=== PATIENT | female | born 1995 | race Hispanic/Latino ===

== ENCOUNTER 2021-10-14 09:21 | Outpatient (CLI) | payer OTHER | END 2021-10-14 09:22 | disposition home or self-care (01) | LOC: CSHULT 09:21 | PROVIDERS: ATTEND Family Medicine | DX: Z34.82 Encounter for supervision of other normal pregnancy, second trimester (principal); Z3A.21 21 weeks gestation of pregnancy | CPT/HCPCS: 76805 ==

== ENCOUNTER 2022-02-10 05:09 | Inpatient (IN) | payer MEDICAID, OTHER, SELFPAY ==
[2022-02-10 05:35] VITALS: BMI 26.1
[2022-02-10] MEDS ORDERED: Promethazine HCl 25 MG/ML VIAL IM PRN ×2 (08:14→09:39)
[2022-02-10] MEDS ORDERED: Lidocaine 1% (PF) 30 ML VIAL SC PRN (08:14)
[2022-02-10] MEDS ORDERED: Ibuprofen 800 MG TAB PO PRN (08:14)
[2022-02-10] MEDS ORDERED: Butorphanol Tartrate 1 MG/ML VIAL SLOW IVP PRN (08:14)
[2022-02-10] MEDS ORDERED: HYDROcodone/Acetaminophen 5/325 mg Tablet PO PRN ×3 (08:14→09:39)
[2022-02-10] MEDS ORDERED: hydrALAZINE 20 MG/ML VIAL SLOW IVP PRN ×2 (08:14→09:39)
[2022-02-10] MEDS ORDERED: Ondansetron PF 4 MG/2 ML Vial IVP PRN ×2 (08:14→09:39)
[2022-02-10] MEDS ORDERED: Lactated Ringer's 1,000 ML IV SCH ×2 (08:15)
[2022-02-10] MEDS: NS w/ Oxytocin 30 units 500 ML IV SCH ×2 (09:09→09:31)
[2022-02-10 09:22] LABS: Hemoglobin 14.6 g/dL (12.0-15.5); Mean Corpuscular HGB CONC 35.2 g/dL (32.0-36.0); Mean Corpuscular Hemoglobin 30.9 pg (27.0-33.0); Mean Corpuscular Volume 87.9 fl (81.6-98.3); Mean Platelet Volume 12.3 fl (7.4-10.4); Platelet Count 180 10x3/uL (150-450); RBC Distribution Width 13.2 % (11.5-14.5); Red Blood Cell (RBC) Count 4.72 10x6/uL (3.90-5.03); White Blood Cell (WBC) Count 14.7 10x3/uL (3.5-10.5)
[2022-02-10] MEDS ORDERED: Milk Of Magnesia 30 ML UDCUP PO PRN (09:39)
[2022-02-10] MEDS ORDERED: diphenhydrAMINE 25 MG CAP PO PRN (09:39)
[2022-02-10] MEDS ORDERED: Lanolin Ointment 7 GM TUBE TOP PRN (09:39)
[2022-02-10] MEDS ORDERED: Benzocaine-Menthol 82.5 ML CAN TOP PRN (09:39)
[2022-02-10] MEDS ORDERED: NS w/ Oxytocin 30 units 500 ML IV SCH (09:39)
[2022-02-10] MEDS ORDERED: Bisacodyl 10 MG SUPP PR PRN (09:39)
[2022-02-10] MEDS ORDERED: Boostrix 0.5 ML (Tdap) VIAL IM ONE (09:39)
[2022-02-10 09:45] LABS: Hep B Surf Ag Non-Reactive S/CO (NonReactive)
[2022-02-10 09:46] LABS: HBSAg Index 0.15 S/CO (0-0.99)
[2022-02-10 14:32] LABS: Syphilis Antibody Nonreactive (Nonreactive); Syphilis Antibody Index 0.04 S/CO (<1.00 Non-Reactive)
[2022-02-10] MEDS: Ferrous Sulfate 325 MG TAB PO SCH (17:34)
[2022-02-10] MEDS: Ibuprofen 800 MG TAB PO SCH ×2 (19:21→19:55)
[2022-02-10] MEDS: Docusate 100 MG CAP PO SCH (19:56)
[2022-02-10] MEDS: HYDROcodone/Acetaminophen 5/325 mg Tablet PO PRN (21:59)
[2022-02-11] MEDS: Ibuprofen 800 MG TAB PO SCH ×2 (06:50→15:05)
[2022-02-11 08:43] VITALS: BP 100/61; TEMP 98.3
[2022-02-11] MEDS: HYDROcodone/Acetaminophen 5/325 mg Tablet PO PRN (08:55)
[2022-02-11] MEDS: Ferrous Sulfate 325 MG TAB PO SCH (08:56)
[2022-02-11] MEDS: Docusate 100 MG CAP PO SCH (08:58)
[2022-02-11] MEDS ORDERED: Prenatal Vitamin 1 TAB PO SCH (09:00)
== END 2022-02-11 15:35 | disposition home or self-care (01) | DRG 807 ==
LOC: CSHLD/OP 05:09 → CSHLD 08:48 → CSHPP 10:40
PROVIDERS: ADMIT Family Medicine; ATTEND Family Medicine
PROC: 10E0XZZ Delivery of Products of Conception, External Approach (ICD-10-PCS; principal; 2022-02-10)
PROC: 0KQM0ZZ Repair Perineum Muscle, Open Approach (ICD-10-PCS; 2022-02-10)
PROC: 10907ZC Drainage of Amniotic Fluid, Therapeutic from Products of Conception, Via Natural or Artificial Opening (ICD-10-PCS; 2022-02-10)
DX: O69.81X0 Labor and delivery complicated by cord around neck, without compression, not applicable or unspecified (principal); Z37.0 Single live birth; O70.1 Second degree perineal laceration during delivery; Z3A.39 39 weeks gestation of pregnancy
CPT/HCPCS: 36416; 85027; 86780; 86850; 86900; 86901; 87340; 99285; J2001; J2590